=== PATIENT | male | born 2000 | race Caucasian/White ===

== ENCOUNTER 2022-01-02 15:42 | Inpatient (IN) | payer OTHER ==
[~2022-01-02] VITALS: Ht 180.3 cm; Wt 108.6 kg
[2022-01-02] MEDS ORDERED: FLUO20CA22 PO (16:01)
[2022-01-02 16:57] LABS: HEMOGLOBIN 14.1 g/dl (13.5-17.5); MEAN CORPUSCULAR HEMOGLOBIN 30.9 pg (27.0-33.0); MEAN CORPUSCULAR HGB CONC 34.4 g/dl (32.0-36.5); MEAN CORPUSCULAR VOLUME 89.7 fl (80.0-96.0); PLATELET COUNT, AUTOMATED 343 10^3/uL (150-450); RED BLOOD COUNT 4.57 10^6/uL (4.30-6.10); WHITE BLOOD COUNT 10.5 10^3/uL (4.0-10.0)
[2022-01-02 17:11] LABS: ACETAMINOPHEN LEVEL < 2.0 UG/ML (10.0-30.0); ALBUMIN 3.9 GM/DL (3.2-5.2); ALT/SGPT 34 U/L (12-78); BILIRUBIN,DIRECT 0.1 MG/DL (0.0-0.2); BILIRUBIN,TOTAL 0.3 MG/DL (0.2-1.0); BLOOD UREA NITROGEN 15 MG/DL (7-18); CALCIUM LEVEL 8.5 MG/DL (8.5-10.1); CARBON DIOXIDE LEVEL 29 MEQ/L (21-32); CHLORIDE LEVEL 105 MEQ/L (98-107); CREATININE FOR GFR 0.95 MG/DL (0.70-1.30); ETHYL ALCOHOL (ETHANOL) < 0.003 % (0.000-0.010); GLUCOSE, FASTING 80 MG/DL (70-100); POTASSIUM SERUM 3.7 MEQ/L (3.5-5.1); SALICYLATE LEVEL < 1.7 MG/DL (5.0-30.0); SODIUM LEVEL 140 MEQ/L (136-145); TOTAL PROTEIN 7.3 GM/DL (6.4-8.2)
[2022-01-02 17:45] LABS: AMPHETAMINES LEVEL URINE NEGATIVE (NEGATIVE); BARBITURATES URINE NEGATIVE (NEGATIVE); BENZODIAZEPINES URINE NEGATIVE (NEGATIVE); CANNABINOIDS URINE NEGATIVE (NEGATIVE); COCAINE METABOLITE URINE NEGATIVE (NEGATIVE); METHADONE URINE NEGATIVE (NEGATIVE); OPIATES URINE NEGATIVE (NEGATIVE); PHENCYCLIDINE URINE NEGATIVE (NEGATIVE)
[2022-01-02 18:05] LABS: RSV AMPLIFICATION NEGATIVE (NEGATIVE)
[2022-01-02] MEDS ORDERED: HOME MED LIST COMPLETE! XX SCH (18:25)
[2022-01-02] MEDS ORDERED: ACETAMINOPHEN TAB 650MG DOSE (2X325MG) PO PRN (20:50)
[2022-01-02] MEDS ORDERED: MAALOX 30 ML SUSP *UDC PO PRN (20:50)
[2022-01-02] MEDS ORDERED: traZODone 50 MG TAB PO PRN (20:50)
[2022-01-02] MEDS ORDERED: MOM 30ML SUSPENSION UDC PO PRN (20:50)
[2022-01-02 22:07] VITALS: BP 138/90
[2022-01-03 06:44] VITALS: BP 147/69
[2022-01-03] MEDS ORDERED: FLUoxetine 20 MG CAP PO SCH (09:00)
[2022-01-03] MEDS: VENLAFAXINE **XR** 37.5 MG CAPSULE PO SCH (09:00)
[2022-01-03 16:40] VITALS: BP 107/58
[2022-01-04 06:46] VITALS: BP 120/67
[2022-01-04] MEDS: VENLAFAXINE **XR** 37.5 MG CAPSULE PO SCH (08:52)
[2022-01-04 17:48] VITALS: BP 124/73
[2022-01-05 06:48] VITALS: BP 104/59
[2022-01-05] MEDS: VENLAFAXINE **XR** 37.5 MG CAPSULE PO SCH (09:36)
[2022-01-05 16:06] VITALS: BP 116/61
[2022-01-06 06:29] VITALS: BP 112/58
[2022-01-06] MEDS: VENLAFAXINE **XR** 75MG CAPSULE PO SCH (08:49)
[2022-01-06 16:17] VITALS: BP 119/74
[2022-01-07 06:35] VITALS: BP 133/64
[2022-01-07] MEDS: VENLAFAXINE **XR** 75MG CAPSULE PO SCH (07:51)
[2022-01-07 16:15] VITALS: BP 133/80
[2022-01-07] MEDS: diphenhydrAMINE 50MG CAP PO PRN (21:42)
[2022-01-08 06:27] VITALS: BP 118/65
[2022-01-08] MEDS: VENLAFAXINE **XR** 75MG CAPSULE PO SCH (08:13)
[2022-01-08 18:27] VITALS: BP 134/84
[2022-01-08] MEDS: diphenhydrAMINE 50MG CAP PO PRN (23:27)
[2022-01-09 06:39] VITALS: BP 121/61
[2022-01-09] MEDS: VENLAFAXINE **XR** 75MG CAPSULE PO SCH (09:00)
[2022-01-09] MEDS ORDERED: VENL75CA47 PO (09:39)
[2022-01-09] MEDS ORDERED: TRAZ-252 PO (09:39)
[2022-01-09] MEDS ORDERED: DIPH50CA PO (09:39)
== END 2022-01-09 11:23 | disposition home or self-care (01) | DRG 885 ==
LOC: M ED 15:42 → M ED INP 20:50 → M PSY 21:48
PROVIDERS: ADMIT Psychiatry & Neurology Psychiatry; ATTEND Student in an Organized Health Care Education/Training Program
DX: F33.2 Major depressive disorder, recurrent severe without psychotic features (principal); Z81.1 Family history of alcohol abuse and dependence; Z81.8 Family history of other mental and behavioral disorders; Z91.51 Personal history of suicidal behavior; Z56.89 Other problems related to employment; R21 Rash and other nonspecific skin eruption

== ENCOUNTER 2022-01-24 02:32 | Emergency (ER) | payer OTHER ==
[~2022-01-24] VITALS: Ht 180.3 cm; Wt 104.5 kg
[~2022-01-24 02:32] MED LIST: DIPH50CA PO; FLUO20CA22 PO; TRAZ-252 PO; VENL75CA47 PO
[2022-01-24] MEDS ORDERED: ONDANSETRON 4MG/2ML VIAL IV ONE (06:40)
[2022-01-24] MEDS ORDERED: KETOROLAC 30 MG/ML 1ML VIAL IV ONE (06:40)
[2022-01-24 07:12] LABS: BASO % 0.4 % (0.0-1.0); EOS # 0.2 10^3/uL (0.0-0.5); EOS % 1.5 % (0.0-3.0); HEMATOCRIT 42.8 % (42.0-52.0); HEMOGLOBIN 14.6 g/dl (13.5-17.5); LYMPH # 1.5 10^3/uL (1.5-5.0); LYMPH % 13.9 % (24.0-44.0); MEAN CORPUSCULAR HEMOGLOBIN 31.1 pg (27.0-33.0); MEAN CORPUSCULAR HGB CONC 34.1 g/dl (32.0-36.5); MEAN CORPUSCULAR VOLUME 91.3 fl (80.0-96.0); MONO # 0.9 10^3/uL (0.0-0.8); MONO % 8.5 % (2.0-8.0); NEUTROPHILS # 8.1 10^3/uL (1.5-8.5); NEUTROPHILS % 75.4 % (36.0-66.0); PLATELET COUNT, AUTOMATED 314 10^3/uL (150-450); RED BLOOD COUNT 4.69 10^6/uL (4.30-6.10); WHITE BLOOD COUNT 10.7 10^3/uL (4.0-10.0)
[2022-01-24 07:22] LABS: INR 0.97; PROTHROMBIN TIME 13.3 SECONDS (12.7-14.5)
[2022-01-24 07:34] LABS: ERYTHROCYTE SEDIMENTATION RATE 5 mm/hr (0-15)
[2022-01-24 07:36] LABS: ALBUMIN 3.8 GM/DL (3.2-5.2); ALT/SGPT 36 U/L (12-78); BILIRUBIN,DIRECT 0.2 MG/DL (0.0-0.2); BILIRUBIN,TOTAL 0.6 MG/DL (0.2-1.0); BLOOD UREA NITROGEN 15 MG/DL (7-18); C REACTIVE PROTEIN QUANTITATIV 0.93 MG/DL (0.00-0.30); CALCIUM LEVEL 8.5 MG/DL (8.5-10.1); CARBON DIOXIDE LEVEL 29 MEQ/L (21-32); CHLORIDE LEVEL 104 MEQ/L (98-107); CREATININE FOR GFR 0.94 MG/DL (0.70-1.30); GLUCOSE, FASTING 86 MG/DL (70-100); LIPASE 48 U/L (73-393); POTASSIUM SERUM 4.4 MEQ/L (3.5-5.1); SODIUM LEVEL 137 MEQ/L (136-145); TOTAL PROTEIN 7.2 GM/DL (6.4-8.2)
[2022-01-24] MEDS ORDERED: ISOVUE-370 76% 100ML VIAL As Ordered ONE (07:56)
[2022-01-24 09:03] VITALS: BP 149/63
== END 2022-01-24 09:06 | disposition home or self-care (01) ==
LOC: M ED 02:32
DX: R10.9 Unspecified abdominal pain (principal); K92.0 Hematemesis
CPT/HCPCS: 74177; 80048; 80076; 83690; 85025; 85610; 85652; 86140; 96374; 96375; 99284; J1885; J2405; Q9967